=== PATIENT | male | born 2000 | race Caucasian/White ===

== ENCOUNTER 2021-03-18 15:08 | Emergency (ER) | payer MEDICAID ==
[~2021-03-18] VITALS: Ht 172.7 cm; Wt 84.0 kg
[~2021-03-18 15:08] MED LIST: ACET-3161
[2021-03-18 17:10] VITALS: BP 120/66
[2021-03-18] MEDS ORDERED: ONDANSETRON 4MG ODT PO STA (17:13)
[2021-03-18] MEDS ORDERED: MAGNESIUM/ALUMINUM HYDROXIDE/SIMETHICONE 30ML UDC PO STA (17:13)
[2021-03-18] MEDS ORDERED: VISCOUS LIDOCAINE 2% 15 ML UDC PO STA (17:13)
[2021-03-18] MEDS ORDERED: FAMOTIDINE 20MG TABLET PO ONE (17:15)
[2021-03-18] MEDS ORDERED: FAMO-135 PO (17:20)
[2021-03-18] MEDS ORDERED: ACYC200C31 MT (17:20)
[2021-03-18] MEDS ORDERED: MAG355OR21 MT (17:20)
== END 2021-03-18 18:24 | disposition home or self-care (01) ==
LOC: ER 15:08
DX: K52.9 Noninfective gastroenteritis and colitis, unspecified (principal); Z88.2 Allergy status to sulfonamides
CPT/HCPCS: 99284; Q0162

== ENCOUNTER 2022-06-19 15:47 | Emergency (ER) | payer MEDICAID ==
[~2022-06-19] VITALS: Ht 170.2 cm; Wt 75.0 kg
[~2022-06-19 15:47] MED LIST changes: +ACYC200C31 MT; +FAMO-135 PO; +MAG355OR21 MT
[2022-06-19 15:58] VITALS: BP 120/78
[2022-06-19] MEDS ORDERED: ACETAMINOPHEN 325MG TABLET PO STA (20:25)
[2022-06-19] MEDS ORDERED: MAGNESIUM/ALUMINUM HYDROXIDE/SIMETHICONE 30ML UDC PO STA (20:25)
[2022-06-19] MEDS ORDERED: VISCOUS LIDOCAINE 2% 15 ML UDC PO STA (20:25)
[2022-06-19] MEDS ORDERED: FAMOTIDINE 20MG TABLET PO ONE (20:30)
[2022-06-19 21:00] LABS: BASOPHILS % 0.4 % (0.0-2.0); EOSINOPHILS % 0.3 % (0.0-5.0); HEMATOCRIT. 45.9 % (42.0-52.0); HEMOGLOBIN. 15.8 g/dL (14.0-18.0); LYMPHOCYTES % 8.6 % (20.0-50.0); MEAN CORPUSCULAR HEMOGLOBIN 29.9 pg (28.0-32.0); MEAN CORPUSCULAR VOLUME 86.6 fL (80.0-94.0); MEAN PLATELET VOLUME 8.1 fl (7.4-10.4); MONOCYTES % 9.9 % (2.0-8.0); NEUTROPHILS % 80.8 % (40.0-76.0); PLATELET 227 x1000/uL (130-400); RED CELL DISTRIBUTION WIDTH 12.9 % (11.6-14.6)
[2022-06-19 21:08] LABS: CLARITY URINE CLEAR (CLEAR); COLOR URINE YELLOW (YELLOW); KETONES URINE TRACE (NEGATIVE); LEUKOCYTE ESTERASE URINE NEGATIVE (NEGATIVE); NITRITE URINE NEGATIVE (NEGATIVE); OCCULT BLOOD URINE NEGATIVE (NEGATIVE); PH URINE 5.5 (4.5-8.0); PROTEIN URINE NEGATIVE (NEGATIVE); SPECIFIC GRAVITY URINE 1.029 (1.005-1.030); UROBILINOGEN URINE 0.2 E.U./dL (0.2-1.0)
[2022-06-19 21:09] LABS: CHLORIDE 101 mEq/L (98-107)
[2022-06-19] MEDS ORDERED: TOPUD MT (22:28)
[2022-06-19] MEDS ORDERED: FAMO-135 PO (22:28)
[2022-06-20] MEDS ORDERED: CIPR-263 MT (10:02)
== END 2022-06-19 22:53 | disposition home or self-care (01) ==
LOC: ER 15:47
DX: R10.13 Epigastric pain (principal); R19.7 Diarrhea, unspecified; Z79.899 Other long term (current) drug therapy; Z88.2 Allergy status to sulfonamides
CPT/HCPCS: 36415; 74176; 80053; 81003; 85025; 99284

== ENCOUNTER 2022-06-20 08:37 | Emergency (ER) | payer MEDICAID ==
[~2022-06-20] VITALS: Ht 167.6 cm; Wt 78.0 kg
[~2022-06-20 08:37] MED LIST changes: +TOPUD MT
[2022-06-20] MEDS ORDERED: IBUPROFEN 400MG TABLET PO ONE (08:45)
[2022-06-20] MEDS ORDERED: CIPR-263 MT (10:02)
[2022-06-20 10:06] VITALS: BP 127/63
== END 2022-06-20 10:44 | disposition home or self-care (01) ==
LOC: ER 08:37
DX: R19.7 Diarrhea, unspecified (principal); R10.33 Periumbilical pain
CPT/HCPCS: 99282